=== PATIENT | female | born 1975 | race Caucasian/White ===

== ENCOUNTER → 2017-06-08 | Outpatient (CLI) | payer OTHER ==
[2016-09-03 10:45] VITALS: BP 125/76
[~2017-06-08] MED LIST: AMIT50TA PO; CYCL10TA2 PO; DULO60CA6 PO; ELET20TA PO; ISOM1CAP PO; LANS30CA66 PO; LINA145C PO; METO5TAB PO; NABU500T PO; ONAB100V IJ; ONDA8TAB9 PO; PRED20TA PO; RIZA10TA7 PO; SUCR1TAB35 PO; TEMA15CA PO; TRAM50TA PO; VALA500T5 PO; ZOLM5TAB PO
--- NOTE | 2017-06-10 09:27 | RAD ---
DATE: 06/08/2017 EXAM: MAMMO RAY SCREENING BILATERAL Bilateral digital screening mammography to include digital breast tomosynthesis (3D mammography) HISTORY: Screening study. COMPARISON: None. This study was interpreted with the benefit of Computerized Aided Detection (CAD). The breast parenchyma is heterogeneously dense, which could reduce sensitivity of mammography. Breast parenchyma level C. FINDINGS: Digital MLO and CC mammograms of both breasts were obtained. Additionally digital breast tomosynthesis (3D mammography) images of both breasts in the MLO and CC projections were performed. This is the patient's baseline mammogram. The breast parenchyma is heterogeneously dense which can obscure a lesion on mammography (breast density code C). No spiculated mass is seen. No malignant appearing calcification or area of architectural distortion is noted. Digital breast tomosynthesis images demonstrate no spiculated mass or malignant appearing calcification. IMPRESSION: BI-RADS Category 1, negative. There is no mammographic evidence of malignancy. Routine yearly screening mammography is recommended for follow-up. BI-RADS CATEGORY: 1 NEGATIVE RECOMMENDED FOLLOW-UP: 12M 12 MONTH FOLLOW-UP PQRS compliance statement: Patient information was entered into a reminder system with a target due date 06/08/2018 for the next mammogram. Mammography is a sensitive method for finding small breast cancers, but it does not detect them all and is not a substitute for careful clinical examination. A negative mammogram does not negate a clinically suspicious finding and should not result in delay in biopsying a clinically suspicious abnormality. "Our facility is accredited by the [employer] Mammography Program."
== END | disposition home or self-care (01) ==
LOC: KCIC MAMMO 16:19
PROVIDERS: ATTEND Obstetrics & Gynecology
DX: Z12.31 Encounter for screening mammogram for malignant neoplasm of breast (principal)
CPT/HCPCS: 77063; G0202; 77067

== ENCOUNTER → 2017-07-10 | Outpatient (CLI) | payer OTHER ==
[2016-09-03 10:45] VITALS: BP 125/76
--- NOTE | 2017-07-10 13:38 | KCIC ---
CHEST PA LATERAL History: Left lower chest pain, pleuritic on and off since February. Cough. Nonsmoker. Comparison: None. Findings: The cardiomediastinal silhouette is normal. Pulmonary vasculature is normal. The lungs are clear. No pleural effusion or pneumothorax is seen. There is no acute bone abnormality. IMPRESSION: No acute cardiopulmonary process. Electronically signed by: Cristi Giraldo MD (07/10/2017 1:33 PM) [id number]
== END | disposition home or self-care (01) ==
LOC: KCIC 08:11
PROVIDERS: ATTEND Nurse Practitioner Family
DX: R07.81 Pleurodynia (principal)
CPT/HCPCS: 71020